=== PATIENT | male | born 1990 | race Caucasian/White ===

== ENCOUNTER 2022-07-14 23:01 | Emergency (ER) | payer SELFPAY ==
[~2022-07-14] VITALS: Ht 185.4 cm; Wt 65.9 kg
[2022-07-14 23:04] VITALS: TEMP 97.9
[2022-07-14 23:33] LABS: COLLECTION METHOD CLEAN CATCH
[2022-07-14 23:38] LABS: PH 5.5 (5.0-8.5); URINE APPEARANCE Clear (CLEAR/HAZY); URINE BLOOD Negative (NEGATIVE); URINE COLOR Yellow (YELLOW); URINE GLUCOSE Negative (NEGATIVE); URINE KETONE TRACE (NEGATIVE); URINE NITRATE Negative (NEGATIVE); URINE PROTEIN(semi-quant) Negative (NEGATIVE); URINE UROBILINOGEN 0.2 E.U/dL (0.2-1.0)
[2022-07-14 23:42] LABS: MUCOUS Present (NOT PRESENT); SQUAMOUS EPITHELIAL 0-2 /hpf (0-10); URINE BACTERIA None Seen /hpf (NONE SEEN); URINE RBC 0-2 /hpf (0-2)
[2022-07-14 23:48] LABS: TRICYCLIC ANTIDEPRESS URINE NEGATIVE
[2022-07-14 23:48] LABS: BASO # 0.1 K/mm3 (0.0-0.2); BASO % 1.5 % (0.0-2.0); EOS # 0.1 K/mm3 (0.0-0.7); GRAN # 2.9 K/mm3 (1.4-6.5); GRAN % 48.6 % (42.2-75.2); HEMOGLOBIN 14.9 g/dl (13.5-18.0); LYMPH # 2.3 K/mm3 (1.2-3.4); LYMPH % 38.5 % (20.0-51.0); MEAN CELL VOLUME 100 fl (80.0-100.0); MEAN CORPUSCULAR HEMOGLOBIN 35 pg (27-31); MEAN CORPUSCULAR HGB CONC 35 g/dl (33.0-37.0); MEAN PLATELET VOLUME 9.2 fl (7.4-10.4); MONO # 0.6 K/mm3 (0.1-0.6); MONO % 9.2 % (1.7-9.3); PLATELET COUNT 203 K/mm3 (130-400); REDCELL DISTRIBUTION WIDTH-CV 11.8 % (11.5-14.5)
[2022-07-15 00:08] LABS: ALANINE AMINOTRANSFERASE 105 U/L (0-55); ALBUMIN 4.2 gm/dL (3.5-5.0); ALKALINE PHOSPHATASE 93 U/L (40-150); ANION GAP 12 mmol/L (7-16); AST,SGOT 204 U/L (5-34); BILIRUBIN,TOTAL 0.3 mg/dL (0.2-1.2); BLOOD UREA NITROGEN 7 mg/dL (9-21); CALCIUM 9.2 mg/dL (8.4-10.2); CARBON DIOXIDE 25 mmol/L (22-29); CHLORIDE 108 mmol/L (98-107); CREATININE, serum 0.81 mg/dL (0.72-1.25); GLUCOSE 91 mg/dL (70-99); SODIUM 145 mmol/L (136-145); TOTAL PROTEIN 7.6 gm/dL (6.2-8.1)
[2022-07-15 00:09] LABS: ACETAMINOPHEN < 1.0 ug/mL (10-30); SALICYLATE < 5.0 mg/dL (15.0-30.0)
[2022-07-15 00:10] LABS: ALCOHOL(ethanol),MEDICAL 387 mg/dL (0-10)
[2022-07-15 12:05] VITALS: BP 140/84; PULSE 98
== END 2022-07-15 12:05 | disposition home or self-care (01) ==
LOC: COL.ER 23:01
PROVIDERS: Emergency Medicine; Nurse Practitioner Primary Care
DX: R45.851 Suicidal ideations (principal); F10.229 Alcohol dependence with intoxication, unspecified; F14.90 Cocaine use, unspecified, uncomplicated; F12.90 Cannabis use, unspecified, uncomplicated; R74.01 Elevation of levels of liver transaminase levels; F17.210 Nicotine dependence, cigarettes, uncomplicated; F17.290 Nicotine dependence, other tobacco product, uncomplicated; Y90.4 Blood alcohol level of 80-99 mg/100 ml; Z28.310 Unvaccinated for COVID-19